=== PATIENT | male | born 1935 | race Caucasian/White ===

== ENCOUNTER 2021-11-27 21:00 | Inpatient (IN) | payer MEDICAID ==
[~2021-11-27] VITALS: Ht 170.2 cm; Wt 51.3 kg
[2021-11-27 22:47] LABS: BASOPHILS % 0.6 % (0.0-2.0); EOSINOPHILS % 0.7 % (0.0-5.0); HEMATOCRIT. 43.1 % (42.0-52.0); HEMOGLOBIN. 14.3 g/dL (14.0-18.0); LYMPHOCYTES % 18.1 % (20.0-50.0); MEAN CORPUSCULAR HEMOGLOBIN 28.6 pg (28.0-32.0); MEAN CORPUSCULAR VOLUME 86.3 fL (80.0-94.0); MEAN PLATELET VOLUME 7.8 fl (7.4-10.4); NEUTROPHILS % 69.6 % (40.0-76.0); PLATELET 213 x1000/uL (130-400); RED BLOOD CELL COUNT 4.99 mill/uL (4.7-6.1); RED CELL DISTRIBUTION WIDTH 14.4 % (11.6-14.6)
[2021-11-27 22:56] LABS: CHLORIDE 105 mEq/L (98-107)
[2021-11-27 22:59] LABS: ETHANOL BLOOD < 10 mg/dL
[2021-11-27 23:05] LABS: CREATINE KINASE 91 IU/L (39-308)
[2021-11-28] MEDS ORDERED: SODIUM CHLORIDE 0.9% 1,000 ML IV ONE
[2021-11-28] MEDS ORDERED: HYDRALAZINE 20MG/ML VIAL IV NR
[2021-11-28] MEDS: PIPERACILLIN/TAZ 3.375G PREMIX 50 ML IV NR ×2 (00:27→00:40)
[2021-11-28 00:37] LABS: T4 FREE 0.8 ng/dL (0.76-1.46)
[2021-11-28 00:51] LABS: CLARITY URINE CLEAR (CLEAR); COLOR URINE YELLOW (YELLOW); KETONES URINE NEGATIVE (NEGATIVE); LEUKOCYTE ESTERASE URINE NEGATIVE (NEGATIVE); NITRITE URINE NEGATIVE (NEGATIVE); OCCULT BLOOD URINE TRACE (NEGATIVE); PROTEIN URINE 4+ (NEGATIVE); SPECIFIC GRAVITY URINE 1.016 (1.005-1.030); UROBILINOGEN URINE 0.2 E.U./dL (0.2-1.0)
[2021-11-28] MEDS ORDERED: VANCOMYCIN 1G PREMIX 200 ML IV NR (02:00)
[2021-11-28 02:25] LABS: *AMPHETAMINES SCREEN URINE NEGATIVE (NEGATIVE)
[2021-11-28 02:26] LABS: *BARBITURATES SCREEN URINE NEGATIVE (NEGATIVE); *BENZODIAZEPINES SCREEN URINE NEGATIVE (NEGATIVE); *COCAINE SCREEN URINE NEGATIVE (NEGATIVE); METHADONE URINE SCREEN NEGATIVE (NEGATIVE); OPIATES URINE SCREEN NEGATIVE (NEGATIVE); PHENCYCLIDINE URINE SCREEN NEGATIVE (NEGATIVE)
[2021-11-28 02:27] LABS: CANNABINOID URINE SCREEN NEGATIVE (NEGATIVE)
[2021-11-28] MEDS ORDERED: MAGNESIUM/ALUMINUM HYDROXIDE/SIMETHICONE 30ML UDC PO PRN (06:30)
[2021-11-28] MEDS ORDERED: ACETAMINOPHEN 325MG TABLET PO PRN (06:30)
[2021-11-28] MEDS ORDERED: DOCUSATE SODIUM 100MG CAPSULE PO PRN (06:30)
[2021-11-28] MEDS ORDERED: GUAIFENESIN 200MG/10ML SUGAR FREE UDC PO PRN (06:30)
[2021-11-28] MEDS ORDERED: HYDROCODONE/ACETAMINOPHEN 5/325MG TABLET PO PRN (06:30)
[2021-11-28] MEDS: CLONIDINE 0.1MG TABLET PO PRN ×2 (06:50→13:02)
[2021-11-28] MEDS ORDERED: DEXTROSE 50% WATER 50ML SYRINGE IV PRN (07:45)
[2021-11-28] MEDS: INSULIN LISPRO 100 UNITS/ML SUBCUT SCH ×4 (09:00→20:13)
[2021-11-28] MEDS: BLOOD SUGAR DIAGNOSTIC STRIP TEST SCH ×4 (09:28→20:07)
[2021-11-28] MEDS: ENOXAPARIN 30MG/0.3ML SYR SUBCUT SCH (09:28)
[2021-11-28 14:30] VITALS: BP 148/74
[2021-11-28 16:00] VITALS: BP 156/73
[2021-11-28 20:00] VITALS: BP 137/73
[2021-11-29] VITALS: BP 155/79
[2021-11-29 05:00] VITALS: BP 184/93
[2021-11-29] MEDS: CLONIDINE 0.1MG TABLET PO PRN ×2 (05:34→08:33)
[2021-11-29] MEDS: BLOOD SUGAR DIAGNOSTIC STRIP TEST SCH ×4 (06:47→21:47)
[2021-11-29 08:00] VITALS: BP 187/90
[2021-11-29] MEDS: INSULIN LISPRO 100 UNITS/ML SUBCUT SCH ×4 (08:25→21:00)
[2021-11-29] MEDS: ENOXAPARIN 30MG/0.3ML SYR SUBCUT SCH (08:31)
[2021-11-29 08:45] LABS: BASOPHILS % 0.5 % (0.0-2.0); EOSINOPHILS % 1.1 % (0.0-5.0); HEMATOCRIT. 37.8 % (42.0-52.0); LYMPHOCYTES % 21.6 % (20.0-50.0); MEAN CORPUSCULAR HEMOGLOBIN 29.3 pg (28.0-32.0); MEAN CORPUSCULAR VOLUME 85.1 fL (80.0-94.0); MEAN PLATELET VOLUME 8.2 fl (7.4-10.4); MONOCYTES % 9.1 % (2.0-8.0); NEUTROPHILS % 67.7 % (40.0-76.0); PLATELET 207 x1000/uL (130-400); RED BLOOD CELL COUNT 4.44 mill/uL (4.7-6.1); RED CELL DISTRIBUTION WIDTH 14.2 % (11.6-14.6)
[2021-11-29 09:32] LABS: CHLORIDE 104 mEq/L (98-107)
[2021-11-29 09:38] LABS: LDL CHOLESTEROL 92 mg/dL (5-100)
[2021-11-29 09:41] LABS: HDL CHOLESTEROL 62 mg/dL (40-59)
[2021-11-29] MEDS: SODIUM CHLORIDE 0.45% 1,000 ML IV SCH ×2 (11:50→23:04)
[2021-11-29] MEDS: AMLODIPINE 10MG TABLET PO SCH (11:54)
[2021-11-29 12:00] VITALS: BP 150/74
[2021-11-29] MEDS ORDERED: NALOXONE HCL 0.4MG/ML VIAL IV PRN (14:30)
[2021-11-29] MEDS: HYDRALAZINE HCL 25MG TABLET PO SCH ×2 (15:44→21:15)
[2021-11-29 16:00] VITALS: BP 143/89
[2021-11-29 20:00] VITALS: BP 109/67
[2021-11-29] MEDS ORDERED: METF-873 PO (22:59)
[2021-11-29] MEDS ORDERED: ENAL20TA18 PO (23:00)
[2021-11-30] VITALS: BP 144/72
[2021-11-30 04:00] VITALS: BP 172/80
[2021-11-30] MEDS: CLONIDINE 0.1MG TABLET PO PRN ×2 (04:54→09:06)
[2021-11-30] MEDS: SODIUM CHLORIDE 0.45% 1,000 ML IV SCH (04:54)
[2021-11-30] MEDS: HYDRALAZINE HCL 25MG TABLET PO SCH (04:54)
[2021-11-30] MEDS: BLOOD SUGAR DIAGNOSTIC STRIP TEST SCH ×4 (06:33→21:00)
[2021-11-30 08:10] VITALS: BP 167/74
[2021-11-30 08:13] LABS: BASOPHILS % 0.5 % (0.0-2.0); EOSINOPHILS % 0.7 % (0.0-5.0); HEMATOCRIT. 41.7 % (42.0-52.0); HEMOGLOBIN. 14.3 g/dL (14.0-18.0); MEAN CORPUSCULAR HEMOGLOBIN 29.3 pg (28.0-32.0); MEAN CORPUSCULAR VOLUME 85.6 fL (80.0-94.0); MEAN PLATELET VOLUME 8.1 fl (7.4-10.4); MONOCYTES % 9.4 % (2.0-8.0); NEUTROPHILS % 67.4 % (40.0-76.0); PLATELET 223 x1000/uL (130-400); RED BLOOD CELL COUNT 4.87 mill/uL (4.7-6.1); RED CELL DISTRIBUTION WIDTH 14.7 % (11.6-14.6)
[2021-11-30 08:38] LABS: CHLORIDE 105 mEq/L (98-107)
[2021-11-30] MEDS: AMLODIPINE 10MG TABLET PO SCH (09:05)
[2021-11-30] MEDS: ENOXAPARIN 30MG/0.3ML SYR SUBCUT SCH (09:07)
[2021-11-30] MEDS: INSULIN LISPRO 100 UNITS/ML SUBCUT SCH ×4 (09:11→22:49)
[2021-11-30] MEDS: LEVOTHYROXINE SODIUM 25MCG TABLET PO SCH (10:08)
[2021-11-30 12:00] VITALS: BP 137/74
[2021-11-30] MEDS: HYDRALAZINE HCL 50MG TABLET PO SCH ×2 (14:10→22:48)
[2021-11-30 16:00] VITALS: BP 103/50
[2021-11-30 20:00] VITALS: BP 156/74
[2021-12-01] VITALS: BP 147/78
[2021-12-01 04:11] VITALS: BP 120/51
[2021-12-01] MEDS: HYDRALAZINE HCL 50MG TABLET PO SCH ×3 (06:06→21:37)
[2021-12-01] MEDS: ONDANSETRON HCL 4MG/2ML INJ IV PRN (06:11)
[2021-12-01] MEDS: BLOOD SUGAR DIAGNOSTIC STRIP TEST SCH ×4 (07:20→20:44)
[2021-12-01] MEDS: INSULIN LISPRO 100 UNITS/ML SUBCUT SCH ×4 (07:50→20:43)
[2021-12-01 08:10] VITALS: BP 114/61
[2021-12-01] MEDS: AMLODIPINE 10MG TABLET PO SCH (09:30)
[2021-12-01] MEDS: LEVOTHYROXINE SODIUM 25MCG TABLET PO SCH (09:30)
[2021-12-01] MEDS: ENOXAPARIN 30MG/0.3ML SYR SUBCUT SCH (09:31)
[2021-12-01 12:00] VITALS: BP 144/83
[2021-12-01 16:00] VITALS: BP 122/57
[2021-12-01 20:00] VITALS: BP 142/67
[2021-12-02] VITALS: BP 154/65
[2021-12-02 04:00] VITALS: BP 138/72
[2021-12-02] MEDS: HYDRALAZINE HCL 50MG TABLET PO SCH ×3 (06:07→21:10)
[2021-12-02] MEDS: BLOOD SUGAR DIAGNOSTIC STRIP TEST SCH ×4 (07:35→21:09)
[2021-12-02] MEDS: INSULIN LISPRO 100 UNITS/ML SUBCUT SCH ×4 (07:35→21:00)
[2021-12-02 08:03] VITALS: BP 125/63
[2021-12-02] MEDS: ONDANSETRON HCL 4MG/2ML INJ IV PRN ×2 (09:26→17:22)
[2021-12-02] MEDS: ENOXAPARIN 30MG/0.3ML SYR SUBCUT SCH (09:26)
[2021-12-02] MEDS: AMLODIPINE 10MG TABLET PO SCH (09:26)
[2021-12-02] MEDS: LEVOTHYROXINE SODIUM 25MCG TABLET PO SCH (09:26)
[2021-12-02 12:09] VITALS: BP 125/62
[2021-12-02 20:00] VITALS: BP 131/61
[2021-12-03] VITALS: BP 142/64
[2021-12-03 04:00] VITALS: BP 129/61
[2021-12-03] MEDS: HYDRALAZINE HCL 50MG TABLET PO SCH ×2 (06:10→13:27)
[2021-12-03] MEDS: LEVOTHYROXINE SODIUM 25MCG TABLET PO SCH (06:10)
[2021-12-03] MEDS: BLOOD SUGAR DIAGNOSTIC STRIP TEST SCH ×3 (07:20→17:20)
[2021-12-03] MEDS: INSULIN LISPRO 100 UNITS/ML SUBCUT SCH ×3 (07:50→17:50)
[2021-12-03 08:00] VITALS: BP 133/52
[2021-12-03] MEDS: ENOXAPARIN 30MG/0.3ML SYR SUBCUT SCH (08:51)
[2021-12-03] MEDS: AMLODIPINE 10MG TABLET PO SCH (08:52)
[2021-12-03] MEDS ORDERED: NA PHOS,M-B/NA PHOS,DI-BA ENEMA 118ML PR NR (10:15)
[2021-12-03] MEDS ORDERED: LACTULOSE 20G/30ML UDC PO NR (10:15)
[2021-12-03 12:00] VITALS: BP 126/56
[2021-12-03] MEDS: ONDANSETRON HCL 4MG/2ML INJ IV PRN (13:27)
[2021-12-03 16:00] VITALS: BP 123/61
[2021-12-03 16:48] VITALS: BP 123/61
== END 2021-12-03 19:15 | disposition home or self-care (01) | DRG 199 ==
LOC: ER 21:00 → 6WST 11-28 00:24 → ENRESERV 11-28 12:57
PROVIDERS: ADMIT Hospitalist; ATTEND Hospitalist
DX: I16.0 Hypertensive urgency (principal); G93.40 Encephalopathy, unspecified; E43 Unspecified severe protein-calorie malnutrition; F03.90 Unspecified dementia, unspecified severity, without behavioral disturbance, psychotic disturbance, mood disturbance, and anxiety; E86.0 Dehydration; E11.65 Type 2 diabetes mellitus with hyperglycemia; Z20.822 Contact with and (suspected) exposure to COVID-19; E03.9 Hypothyroidism, unspecified; I10 Essential (primary) hypertension; Z91.19 Patient's noncompliance with other medical treatment and regimen; Z68.1 Body mass index [BMI] 19.9 or less, adult; R62.7 Adult failure to thrive
CPT/HCPCS: 36415; 71045; 80053; 80061; 80305; 80307; 80320; 80329; 81003; 82140; 82550; 82962; 83605; 83735; 83880; 84439; 84443; 84481; 84484; 85025; 87426; 93005; 93306; 93970; 97162; 99285; A6261; C1893; J0360; J1650; J1815; J2405; J2543; J3370; G0480